=== PATIENT | female | born 1960 | race Caucasian/White ===

== ENCOUNTER → 2017-04-24 | Outpatient (CLI) | payer SELFPAY | LOC: LAB 18:43 | DX: E07.89 Other specified disorders of thyroid (principal); R00.2 Palpitations ==

== ENCOUNTER → 2017-04-25 | Outpatient (CLI) | payer SELFPAY | LOC: LAB 13:50 | DX: H81.03 Meniere's disease, bilateral (principal); R00.2 Palpitations; E07.89 Other specified disorders of thyroid ==